=== PATIENT | male | born 1985 | race Caucasian/White ===

== ENCOUNTER 2017-01-06 00:58 | Emergency (ER) | payer BC ==
[~2017-01-06] VITALS: Ht 188 cm; Wt 97.5 kg
[~2017-01-06 00:58] MED LIST: IBUPROFEN200 M1 PO; IBUPROFEN800 MG PO; NAPROSYN500 MG PO; NORCO 5-325 TA1 EACH PO
[2017-01-06] MEDS ORDERED: NORCO 5-325 TA1 EACH PO (01:24)
[2017-01-06] MEDS ORDERED: ZOFRAN ODT4 MG PO (01:25)
[2017-01-06] MEDS ORDERED: NAPROXEN500 MG PO (01:25)
[2017-01-06] MEDS ORDERED: PERCOCET 5-3251 EACH PO (02:53)
[2017-01-06] MEDS ORDERED: FLOMAX0.4 MG PO (02:53)
== END 2017-01-06 03:46 | disposition home or self-care (01) ==
LOC: ED 00:58
DX: N13.2 Hydronephrosis with renal and ureteral calculous obstruction (principal); Z79.899 Other long term (current) drug therapy
CPT/HCPCS: 96374; 96375; 99283; J1170; J1885; J2405

== ENCOUNTER 2019-12-15 17:32 | Emergency (ER) | payer BC ==
[~2019-12-15] VITALS: Ht 188 cm; Wt 106.6 kg
--- OUTSIDE RECORDS SUMMARY | ~2019-12-15 | XMS | Encounter Summary ---
Demographics + + + | Address | [address] | | | [place] [address] | + + + | Home Phone | | + + + | Preferred Language | Unknown | + + + | Marital Status | Single | + + + | Cheondoism Affiliation | CAT | + + + | Race | White | + + + | Ethnic Group | Not or | + + + Author + + + | Author | [facility] | + + + | Organization | [facility] | + + + | Address | Unknown | + + + | Phone | Unavailable | + + + Support + + +---------+ + | Name | Relationship | Address | Phone | + + +---------+ + | Tona Gregory | ECON | Unknown | | + + +---------+ + Care Team Providers + +------+ + | Care Tunnel Heading Inspector Name | Role | Phone | + +------+ + | No Pcp Per Patient | PCP | Unavailable | + +------+ + Reason for Visit + + + | Reason | Comments | + + + | Fracture of mandible | | + + + Encounter Details +--------+ + + + + | Date | Type | Department | Care Team | Description | +--------+ + + + + | 08/19/ | Emergency | [facility] Emergency | | | | 2014 | | Department [address] | | | | | | [facility] | | | | | | [place], [place] | | | | | | [address] | | | | | | [phone] | | | +--------+ + + + + Social History + +-------+ +--------+------+ | Tobacco Use | Types | Packs/Day | Years | Date | | | | | Used | | + +-------+ +--------+------+ | Never Assessed | | | | | + +-------+ +--------+------+ + + + | Sex Assigned at | Date Recorded | | | | + + + | Not on file | | + + + documented as of this encounter Medications at Time of Discharge + + + +---------+ + + | Medication | Sig | Dispensed | Refills | Start | End Date | | | | | | Date | | + + + +---------+ + + | | Take 1-2 tablets by | 8 | 0 | 08/21/19 | | | HYDROcodone-acetamin | mouth every four | tablet | | 15 | 5 | | ophen (NORCO) 5-325 | hours as needed for | | | | | | mg oral tablet | severe pain for up | | | | | | | to 5 days. Not to | | | | | | | exceed 3250 mg of | | | | | | | acetaminophen from | | | | | | | all products per 24 | | | | | | | hour period. | | | | | + + + +---------+ + + documented as of this encounter ED Notes Laurence Joy MD - 08/19/2014 6:05 [facility] Spoke with [facility] attending, recommended referring to ED for splinting. Patient took elbow to face, #9, 11 into root, superior portion of midline mandible 23-25 wi th significant loosening of all 3. Received dose of clindamycin. documented in this enc ounter Miscellaneous Notes [facility] - Aura Marquez - 08/19/2014 5:49 PM [address] referring with Dr Sylvia valerio, [facility]. 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 docu mented in this encounter Plan of Treatment Not on filedocumented as of this encounter Visit Diagnoses Not on filedocumented in this encounter"
--- OUTSIDE RECORDS SUMMARY | ~2019-12-15 | XMS | Encounter Summary ---
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 encounter Visit Diagnoses + + | Diagnosis | + + | Tooth avulsion, initial encounter - Primary | + + documented in this encounter Administered Medications + +--------+ +---------+------+------+ | Medication Order | MAR | Action | Dose | Rate | Site | | | Action | Date | | | | + +--------+ +---------+------+------+ | HYDROcodone-acetaminophen | Given | 08/21/19 | 2 | | | | (NORCO) 5-325 mg tablet 2 tablet | | 15 12:09 | tablets | | | | 2 tablet, oral, ONCE, 1 dose, | | AM PDT | | | | | 08/20/14 at 0045 | | | | | | + +--------+ +---------+------+------+ +---+---+ | | | +---+---+ + +---------+ +-------+---+---+ | ketorolac (TORADOL) injection | IV Push | 08/21/19 | 30 mg | | | | 30 mg 30 mg, intravenous, ONCE, | | 15 3:13 | | | | | 1 dose, 08/20/14 at 0345 | | AM PDT | | | | + +---------+ +-------+---+---+ +---+---+ | | | +---+---+ + +-------+ +------+---+---+ | LORazepam (ATIVAN) injection 1 | Given | 08/21/19 | 1 mg | | | | mg 1 mg, intramuscular, ONCE, 1 | | 15 1:43 | | | | | dose, 08/20/14 at 0200 | | AM PDT | | | | + +-------+ +------+---+---+ + +---+ | | | + +---+ | LORazepam (ATIVAN) injection 1 | | | dose, Starting 08/20/14 at | | | 0141, Until 08/20/14 at 0143 | | + +---+ | | | + +---+ documented in this encounter
--- OUTSIDE RECORDS SUMMARY | ~2019-12-15 | XMS | Encounter Summary ---
Demographics + + + | Address | [address] | | | [place] [address] | + + + | Home Phone | | + + + | Preferred Language | Unknown | + + + | Marital Status | Single | + + + | Zoroastrianism Affiliation | CAT | + + + | Race | White | + + + | Ethnic Group | Not or | + + + Author + + + | Author | [facility] | + + + | Organization | [facility] | + + + | Address | Unknown | + + + | Phone | Unavailable | + + + Support + + +---------+ + | Name | Relationship | Address | Phone | + + +---------+ + | Tona Gregory | ECON | Unknown | | + + +---------+ + Care Team Providers + +------+ + | Care Scoreboard Operator Name | Role | Phone | + +------+ + | No Pcp Per Patient | PCP | Unavailable | + +------+ + Encounter Details +--------+ + + + + | Date | Type | Department | Care Team | Description | +--------+ + + + + | 09/06/ | Document-Sc | UNKNOWN DEPARTMENT | Unknown . | | | 2014 | anned | [address] | | | | | | [address] | | | | | | [place], [place] | | | | | | [address] | | | +--------+ + + + [...] + + documented as of this encounter Plan of Treatment Not on filedocumented as of this encounter Visit Diagnoses Not on filedocumented in this encounter"
--- OUTSIDE RECORDS SUMMARY | ~2019-12-15 | XMS | Clinical Summary ---
Demographics + + + | Address | [address] | | | [place] [address] | + + + | Home Phone | | + + + | Preferred Language | Unknown | + + + | Marital Status | Single | + + + | Yarsanism Affiliation | CAT | + + + | Race | White | + + + | Ethnic Group | Not or | + + + Author + + + | Author | [facility] | + + + | Organization | [facility] | + + + | Address | Unknown | + + + | Phone | Unavailable | + + + Support + + +---------+ + | Name | Relationship | Address | Phone | + + +---------+ + | Tona Gregory | ECON | Unknown | | + + +---------+ + Care Team Providers + +------+ + | Care Motor Inspection Mechanic Name | Role | Phone | + +------+ + | No Pcp Per Patient | PCP | Unavailable | + +------+ + Source Comments HAR[facility] is fully live on both [facility] Amb[facility] and [facility]Patient.[facility] Allergies No Known Allergies Medications No known medications Active Problems Not on file Social History + +-------+ +--------+------+ | Tobacco [...] on file | | + + + Last Filed Vital Signs + + + [...] | | + + + + + Plan of Treatment + + +-------+ + | Health Maintenance | Due Date | Last | Comments | | | | Done | | + + +-------+ + | Pneumococcal | | | | | vaccination (1 of 1 | 1 | | | | - PPSV23) | | | | + + +-------+ + | Influenza (Flu) | | | | | vaccination (#1) | 0 | | | + + +-------+ + Results Not on filefrom Last 3 Months Insurance + +--------+ +--------+ + +------+ | Payer | Benefi | Subscriber | Effect | Phone | Address | Type | | | t Plan | ID | chitra | | | | | | / | | Dates | | | | | | Group | | | | | | + +--------+ +--------+ + +------+ | [employer]UE | REGENC | [id number] | 07/09/19 | [phone] | [address] | PPO | | SHIELD | E [employer] | 9 | 18-Pre | 8 | 1106 | | | | | | sent | | NOHEMI | | | | | | | | ID | | | | | | | | [id number] | | + +--------+ +--------+ + +------+ + +--------+ +--------+ + + | Guarantor Name | Accoun | Relation to | Date | Phone | Billing Address | | | t Type | Patient | of | | | | | | | | | | + +--------+ +--------+ + + | Dong Gregory | Person | Self [birth year] | [address] | | | al/Fam | | 1986 | [phone] | [place] [address] | | | paula | | | 6 (Home) | | + +--------+ +--------+ + + | Dong Gregory | Person | Self | [birth year] | [address] | | | al/Fam | | 1986 | [phone] | [place] [address] | | | paula | | | 6 (Home) | | + +--------+ +--------+ + +"
[~2019-12-15 17:32] MED LIST changes: +FLOMAX0.4 MG PO; +NAPROXEN500 MG PO; +PERCOCET 5-3251 EACH PO; +ZOFRAN ODT4 MG PO
== END 2019-12-15 18:40 | disposition home or self-care (01) ==
LOC: ED 17:32
DX: M70.41 Prepatellar bursitis, right knee (principal)
CPT/HCPCS: 20610; 99283-25; J3301

== ENCOUNTER 2021-03-11 05:47 | Emergency (ER) | payer BC ==
[~2021-03-11] VITALS: Ht 188 cm; Wt 98.6 kg
== END 2021-03-11 06:56 | disposition home or self-care (01) ==
LOC: ED 05:47
DX: R07.89 Other chest pain (principal)
CPT/HCPCS: 71046; 99284-25; A9270